=== PATIENT | male | born 1945 | race Caucasian/White ===

== ENCOUNTER 2024-12-24 08:32 | Emergency (ER) | payer MEDICARE, MEDICAID ==
[~2024-12-24] VITALS: Ht 182.9 cm; Wt 109.0 kg
[2024-12-24 08:37] VITALS: O2SAT 97
[2024-12-24 09:24] LABS: BASOPHILS % 0.6 % (0.0-2.0); EOSINOPHILS % 2.4 % (0.0-5.0); HEMATOCRIT. 37.9 % (42.0-52.0); HEMOGLOBIN. 12.7 g/dL (14.0-18.0); LYMPHOCYTES % 24.3 % (20.0-50.0); MEAN CORPUSCULAR HEMOGLOBIN 30.5 pg (28.0-32.0); MEAN CORPUSCULAR HGB CONC 33.6 g/dL (31.0-37.0); MEAN CORPUSCULAR VOLUME 90.6 fL (80.0-94.0); MEAN PLATELET VOLUME 8.9 fl (7.4-10.4); MONOCYTES % 11.9 % (2.0-8.0); NEUTROPHILS % 60.8 % (40.0-76.0); PLATELET 261 x1000/uL (130-400); RED BLOOD CELL COUNT 4.18 mill/uL (4.7-6.1); RED CELL DISTRIBUTION WIDTH 15.5 % (11.6-14.6)
[2024-12-24 09:37] LABS: CHLORIDE 108 mEq/L (98-107); POTASSIUM 4.1 mEq/L (3.5-5.1); SODIUM 136 mEq/L (136-145)
[2024-12-24 09:38] LABS: CARBON DIOXIDE 25 mEq/L (21-32)
[2024-12-24 09:39] LABS: CALCIUM 8.5 mg/dL (8.7-10.4)
[2024-12-24 09:44] LABS: GLUCOSE 105 mg/dL (70-105); UREA NITROGEN BLOOD 21 mg/dL (9-23)
[2024-12-24] MEDS ORDERED: TOPUD PO (10:37)
[2024-12-24] MEDS: ACETAMINOPHEN 325MG TABLET PO ONE (10:42)
[2024-12-24] MEDS: ACETAMINOPHEN 1000MG/100ML 100 ML IV ONE (10:43)
[2024-12-24 10:52] VITALS: BP 144/61; PULSE 60; RESP 16; TEMP 36.5; O2SAT 100
== END 2024-12-24 10:55 | disposition home or self-care (01) ==
LOC: ER 08:32
DX: M54.9 Dorsalgia, unspecified (principal); M25.512 Pain in left shoulder; M54.2 Cervicalgia; I10 Essential (primary) hypertension; R51.9 Headache, unspecified; Z79.82 Long term (current) use of aspirin; V49.9XXA Car occupant (driver) (passenger) injured in unspecified traffic accident, initial encounter; Y93.89 Activity, other specified; Y92.410 Unspecified street and highway as the place of occurrence of the external cause; Y99.8 Other external cause status
CPT/HCPCS: 36415; 73030; 74176; 76705; 80048; 85025; 93880; 99284; J0131